=== PATIENT | female | born 1980 | race Caucasian/White ===

== ENCOUNTER → 2018-01-02 09:35 | Outpatient (CLI) | payer OTHER, SELFPAY ==
[2018-01-03 11:48] LABS: Strep Grp B PCR NEG for Grp B Strep
== END ==
PROVIDERS: PCP Obstetrics & Gynecology
DX: Z34.83 Encounter for supervision of other normal pregnancy, third trimester (principal); Z3A.36 36 weeks gestation of pregnancy
CPT/HCPCS: 87653

== ENCOUNTER 2018-01-23 07:35 | Outpatient (CLI) | payer OTHER, SELFPAY ==
--- NOTE | 2018-01-24 19:06 | PM.OBHP.1 ---
OB HPI History of Present Condition Chief complaint: OBSERVATION OF LABOR Narrative: Shasha Woodard is a 37 year old female two para one with an SHARI of January 27, 2018. Patient had an SGA baby and her last but was followed with serial ultrasounds in this with normal growth. All of the patient's laboratory data were within normal limits. 1st and 2nd trimester testing for abnormalities was normal as well. The patient remained normotensive throughout the . She had adequate fundal growth. Patient presented to Labor and [place] and attempted board the [place]. She was cultured and initially was to be sent by fixed wing aircraft but was found to be 8 cm dilated and rapidly delivered a [facility] a live-born infant without difficulty. Placenta was in for period of time but eventually delivered. The physicians at [facility] in center more uncomfortable maintaining her there and she was transported to [facility]. Meds Home Medications Medication Instructions Recorded Confirmed Type clomiphene citrate 50 mg PO SEE INSTRUCTIONS #5 tab 03/08/17 Rx azithromycin 1 gm PO X1 #3 pck 06/28/17 Rx Review of Systems Review of Systems All systems reviewed & are unremarkable except as noted in HPI and below Exam Const General: cooperative and healthy appearing [facility] Head: normal to inspection Ears: hearing grossly normal bilaterally Nose: external nose normal Face and sinus: normal facial exam Mouth: oral mucosae normal, lip normal, tongue normal and moist mucous membranes Teeth and gingiva: dentition normal Throat: posterior oropharynx normal Eyes General: appearance normal, both eyes and all related structures Neck Neck: normal visual inspection and full ROM Chest Chest: normal inspection of the chest and normal palpation of entire chest wall Breast inspection: normal inspection of the breasts and normal inspection of the axillae Breast Palpation: normal palpation of the breasts and normal palpation of the axillae Resp Effort & Inspection: normal respiratory effort Auscultation: clear to auscultation bilaterally Cardio Palpation: normal PMI Rate: regular rate Rhythm: regular rhythm Heart Sounds: S1 normal and S2 normal GI Inspection: normal to inspection Palpation: soft and no hepatosplenomegaly Percussion: normal to percussion Auscultation: normal bowel sounds General: bladder normal to palpation External Female Exam: external appearance normal and normal appearance of the urethra Speculum Exam - Vagina: normal appearance of the vagina and normal vaginal discharge Speculum Exam - Cervix: normal appearance of the cervix Bimanual Exam- Vagina & Uterus: bladder normal to palpation Bimanual Exam- Adnexa, other: normal adnexae and adnexae mobile Uterus Location (Fundal Height): 20 Other: Patient delivered and appears now with an involuted uterus and minimal amounts of bleeding Back/Spine/Pelvis Thoracic/Lumbar Spine: thoracic and lumbar spine normal to inspection Skin General: no rashes or lesions noted Neuro General: alert, oriented x3, tone normal and moves all extremities Cognition: normal cognition Speech: speech normal Gait: normal gait Motor: muscle tone normal throughout Sensory Exam: no sensory deficits noted Extrem General: normal to inspection and normal exam except as noted Psych Appearance: grossly normal and well kempt Mental Status: mental status grossly normal Speech and Movement: speech and movement normal Assessment and Plan (1) exam: Onset Date: ~01/24/18 Current visit: Yes Status: Acute Delivery outside the hospital at [facility] No complications Standard orders
== END 2018-01-23 08:10 | disposition home or self-care (01) ==
LOC: LABOR 08:04 → OB 01-29 08:43
PROVIDERS: PCP Obstetrics & Gynecology
DX: Z3A.39 39 weeks gestation of pregnancy (principal)
CPT/HCPCS: 59025; G0378; G0379

== ENCOUNTER 2018-01-24 19:00 | Inpatient (IN) | payer OTHER, SELFPAY ==
[2018-01-24] MEDS: OXYTOCIN 10 UNIT/ML VIAL IM (19:45)
[2018-01-24 22:48] VITALS: BP 115/73
[2018-01-25 06:46] LABS: Hematocrit 32.4 % (36-46)
--- NOTE | 2018-01-25 08:03 | PM.OBDS.1 ---
Discharge Providers Date of admission: 01/24/18 19:00 Primary care physician: Grace Barr MD Consults: 01/24/18 20:09 Consult to [employer] Routine Comment: Discharge provider: Pavel Ordoñez MD Discharge Date: 01/25/18 Summary Discharge Diagnosis (1) Spontaneous vaginal delivery: Status: Acute Time Spent with Patient Total time spent providing and/or coordinating discharge services: Objective Labs Result Diagrams: 01/25/18 06:30 Labs: Laboratory Results - last 24 hr 01/25/18 06:30 Hgb 11.0 L Hct 32.4 L Discharge Plan Discharge Plan Patient Disposition: Home Discharge comment: discharge to home Discharge Med Rec/Prescriptions Prescriptions: New ibuprofen 600 mg Tablet 600 mg PO Q6HR PRN (Reason: Pain, Mild (1-3)) Qty: 20 RF: 0 [id number] [Prenatabs Rx] 29 mg iron- 1 mg Tablet 1 tab PO DAILY Qty: 90 RF: 0 docusate sodium 250 mg Capsule 250 mg PO DAILY Qty: 20 RF: 0 oxycodone-acetaminophen [Percocet] 5-325 mg tablet 1 tab PO Q4-6H PRN (Reason: pain) Qty: 20 RF: 0 Follow up/Referrals: Grace Barr MD [Primary Care Provider] - Pavel Ordoñez MD [Physician] - Provider Discharge Instructions Diet: Diet as Tolerated Activity: up ad jean Cold/Heat Therapy: ice to perineum 48 hr Skin/Wound/Dressing Care Report to your healthcare provider any signs of infection, such as:: chills, fever, increased pain and unusual drainage Other wound treatment: keep perineum clean and dry Discharge Data Primary Care Provider: Grace Barr Attending Provider: Pavel Ordoñez Admit Date/Time: 01/24/18 19:00
[2018-01-25] MEDS: PRENATAL VIT,CALC/IRON/FOLIC 1 TABLET 1 TAB PO (09:17)
[2018-01-25] MEDS: DOCUSATE 250 MG CAPSULE PO (09:17)
[2018-01-25 14:10] VITALS: BP 105/63; PULSE 68; RESP 18; TEMP 36.7
== END 2018-01-25 19:35 | disposition home or self-care (01) | DRG 776 ==
PROVIDERS: PCP Obstetrics & Gynecology
DX: Z39.0 Encounter for care and examination of mother immediately after delivery (principal); Z3A.39 39 weeks gestation of pregnancy
CPT/HCPCS: 36415; 85014; 85018; G0379; J2590